=== PATIENT | male | born 1985 | race Hispanic/Latino ===

== ENCOUNTER 2019-02-21 18:16 | Emergency (ER) | payer SELFPAY ==
[2019-02-21] MEDS ORDERED: Adacel (T-DAP) 0.5 ML SYRINGE ONE (19:32)
[2019-02-21] MEDS ORDERED: Bacitracin Zinc 1 Packet ONE (20:24)
--- NOTE | 2019-02-21 20:59 | RAD ---
LEFT FOOT RADIOGRAPHS THREE VIEWS: Date: 02-21-19 Provided Clinical History: Stepped on nail. FINDINGS: There is no evidence for fracture or other acute osseous abnormality. Alignment appears anatomic. Bianca nt spaces appear preserved. There is no evidence for radiopaque foreign body involving the regional s oft tissues. IMPRESSION: As above. POS: DAT
== END 2019-02-21 20:35 | disposition home or self-care (01) ==
LOC: ERS 18:16
DX: S91.332A Puncture wound without foreign body, left foot, initial encounter (principal); F17.210 Nicotine dependence, cigarettes, uncomplicated; W21.31XA Struck by shoe cleats, initial encounter
CPT/HCPCS: 90715

== ENCOUNTER 2022-12-03 12:39 | Emergency (ER) | payer SELFPAY ==
[2022-12-03 15:02] LABS: #Eosinphils 0.1 thou/uL (0.0-0.7); #Lymphocytes 1.3 thou/uL (1.20-3.40); #Monocytes 0.5 thou/uL (0.11-0.59); #Neutrophils 4.7 thou/uL (1.40-6.50); %Basophils 0.5 % (0.0-1.0); %Eosinophils 0.9 % (0.0-10.0); %Lymphocytes 19.3 % (21.0-51.0); %Monocytes 7.7 % (0.0-10.0); %Neutrophils 71.5 % (42.0-75.0); Mean Corpuscular HGB CONC 33.6 g/dL (32.0-36.0); Mean Corpuscular Hemoglobin 30.9 pg (27.0-31.0); Mean Platelet Volume 9.3 fL (7.4-10.4); Platelet Count 181 10x3/uL (130-400); RBC Distribution Width 13.8 % (11.5-14.5); Red Blood Cell (RBC) Count 4.84 mill/uL (4.70-6.10); White Blood Cell (WBC) Count 6.6 10x3/uL (4.8-10.8)
[2022-12-03 15:19] LABS: ALT (SGPT) 324 U/L (8-55); AST (SGOT) 168 U/L (5-34); Albumin 4.1 g/dL (3.5-5.0); Alkaline Phosphatase 119 U/L (40-110); Anion Gap 14 mmol/L (10-20); BUN (Urea Nitrogen) 14 mg/dL (8.9-20.6); Bilirubin, Total 7.3 mg/dL (0.2-1.2); CK (CPK) 32 U/L (30-200); Calc. Creatinine Clearance 0 mL/min (70-130); Calcium 9.3 mg/dL (7.8-10.44); Carbon Dioxide 25 mmol/L (22-29); Chloride 104 mmol/L (98-107); Estimated GFR 109; Globulin 2.8 g/dL (2.4-3.5); Glucose 99 mg/dL (70-105); Lipase 30 U/L (8-78); Protein, Total 6.9 g/dL (6.0-8.3); Sodium 139 mmol/L (136-145)
[2022-12-03 16:19] LABS: Acetaminophen Less than 10.0 mcg/mL (10.0-30.0); Alcohol Less than 10 mg/dL (Less than 10); Salicylate Less than 8.0 mg/dL (15.0-30.0)
[2022-12-03 16:24] LABS: INR-International Normal Ratio 0.9; PTT 31.3 sec (22.9-36.1); Prothrombin Time 12.2 sec (12.0-14.7)
[2022-12-03 16:27] LABS: Bilirubin, Direct 4.3 mg/dL (0.1-0.3)
[2022-12-03 17:59] LABS: HBCM Index 0.08 S/CO (0-0.79); Hep A IgM AB Non-Reactive (NonReactive); Hep A IgM S/CO 0.22 S/CO (0-0.79); Hep B Surf Ag Non-Reactive S/CO (NonReactive); Hep C IgG Ab Non-Reactive (NonReactive); Hep C Index 0.08 S/CO (0-0.79); Hepatitis B Core IgM Abs Non-Reactive (NonReactive)
== END 2022-12-03 17:38 | disposition home or self-care (01) ==
LOC: ERS 12:39
DX: K70.9 Alcoholic liver disease, unspecified (principal); F17.210 Nicotine dependence, cigarettes, uncomplicated
CPT/HCPCS: 36415; 76705; 80053; 80074; 80307; 82140; 82248; 82550; 83690; 84484; 85025; 85610; 85730